=== PATIENT | female | born 1965 | race Caucasian/White ===

== ENCOUNTER 2016-09-05 15:16 | Outpatient (CLI) | payer OTHER ==
[2014-08-21 12:39] VITALS: BP 124/50
== END 2016-09-05 15:17 ==
LOC: LABRHC 15:16
PROVIDERS: ATTEND Physician Assistant
DX: R30.0 Dysuria (principal)
CPT/HCPCS: 87086; 87186

== ENCOUNTER 2016-10-08 08:15 | Outpatient (CLI) | payer OTHER ==
[2014-08-21 12:39] VITALS: BP 124/50
== END 2016-10-08 08:16 ==
LOC: LAB 08:15
PROVIDERS: ATTEND Obstetrics & Gynecology
DX: Z00.00 Encounter for general adult medical examination without abnormal findings (principal)
CPT/HCPCS: 36415; 80061; 83036; 84443

== ENCOUNTER 2018-07-05 16:16 | Outpatient (CLI) | payer OTHER ==
[2014-08-21 12:39] VITALS: BP 124/50
== END 2018-07-05 16:18 ==
LOC: LABRHC 16:16
PROVIDERS: ATTEND Family Medicine
DX: R30.0 Dysuria (principal)
CPT/HCPCS: 87086; 87186